=== PATIENT | male | born 1950 | race African-American/Black ===

== ENCOUNTER 2020-06-01 15:10 | Inpatient (IN) | payer OTHER ==
--- NOTE | 2020-06-01 15:24 | BHS.RME ---
Substance Use & Tx History - Substance Use History Alcohol Substance amount: one pint Frequency of use: Daily Substance route: Oral Date of Last Use: 05/31/20 (First use age 18 y) Heroin Substance amount: 8 bags Frequency of use: Daily Substance route: Inhalation (ex: sniffing or snorting) Date of Last Use: 05/31/20 (First use age 18 y) Marijuana/Hashish Substance amount: one joint Frequency of use: Once a month Substance route: Smoking Date of Last Use: 05/28/20 Nicotine Substance amount: 10 cigs Frequency of use: Daily Substance route: Smoking Date of Last Use: 06/01/20 - Last Treatment Date of last treatment: September 2018 Where was last treatment: Rehab Physical/Psych/Mental Status - Behavior General Behavior: Increased activity (restlessness, agitation) Eye Contact: Normal - Cooperativeness Cooperativeness: Cooperative - Thinking Thought Processes: Tight Thought content: Future oriented - Physical Health Problems Is patient presently having any pain?: No Does patient presently have any injuries (include location): No Does patient currently have a fever: No COWS - Scale Resting Pulse: 4= [place] > 121 Sweatin= Chills/Flushing Restless Observation: 1= Difficult to Sit Still Pupil Size: 0= Normal to Room Light Bone or Joint Aches: 1= Mild Discomfort Runny Nose/ Eye Tearin= Nasal Congestion GI Upset > 30mins: 1= Stomach Cramp Tremor Observation: 2= Slight Tremor Visible Yawning Observation: 0= None Anxiety or Irritability: 1=Feels Anxious/Irritable Goose Flesh Skin: 0=Smooth Skin COWS Score: 12 CIWA Nausea/Vomitin Muscle Tremors: 2 Anxiety: 2 Agitation: 0-Normal Activity Paroxysmal Sweats: No Perspiration Orientation: 0-Oriented Tacttile Disturbances: 0-None Auditory Disturbances: 1-Very Mild Visual Disturbances: 1-Very Mild Sensitivity Headache: 0-None Present CIWA-Ar Total Score: 9
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
[2020-06-01] MEDS ORDERED: METHADONE HCL 10 MG TABLET (FOR DETOX USE ONLY) PO ONE ×2 (17:50→18:46)
[2020-06-01] MEDS ORDERED: MENTHOL/PHENOL 1 EACH UD MM PRN (17:50)
[2020-06-01] MEDS ORDERED: BISMUTH SUBSALICYLATE 524 MG/30 ML UD PO PRN (17:50)
[2020-06-01] MEDS ORDERED: cloNIDine HCL 0.1 MG TABLET PO PRN ×2 (17:50→18:46)
[2020-06-01] MEDS ORDERED: METHOCARBAMOL 500 MG TABLET PO PRN (17:50)
[2020-06-01] MEDS ORDERED: MAGNESIUM HYDROX 2400MG/30ML ORAL SUSPENSION 30 ML CUP PO PRN (17:50)
[2020-06-01] MEDS ORDERED: IBUPROFEN 400 MG TABLET (FP) PO PRN (17:50)
[2020-06-01] MEDS ORDERED: ONDANSETRON *ODT* 4 MG TABLET SL PRN (17:50)
[2020-06-01] MEDS ORDERED: MAGNESIUM CITRATE 300 ML BOTTLE PO PRN (17:50)
[2020-06-01] MEDS ORDERED: MAG HYDROX/AL HYDROX/SIMETH 30 ML UNIT-DOSE CUP PO PRN (17:50)
[2020-06-01] MEDS ORDERED: chlordiazePOXIDE HCL 10 MG CAPSULE PO PRN (17:50)
[2020-06-01] MEDS ORDERED: ACETAMINOPHEN 325 MG TABLET (FP) PO PRN (17:50)
[2020-06-01] MEDS ORDERED: NICOTINE POLACRILEX 2 MG GUM BUC PRN (17:50)
[2020-06-01] MEDS ORDERED: hydrOXYzine PAMOATE 25 MG CAPSULE (FP) PO SCH (18:00)
[2020-06-01] MEDS ORDERED: hydrOXYzine PAMOATE 25 MG CAPSULE (FP) PO PRN (18:12)
[2020-06-01 18:34] VITALS: BMI 22.8
[2020-06-01] MEDS ORDERED: amLODIPine BESYLATE 10 MG TABLET (FP) PO ONE (18:45)
--- NOTE | 2020-06-01 18:50 | PN ---
Teaching Attending Note Name of Resident: Verenice Portillo ATTENDING PHYSICIAN STATEMENT I saw and evaluated the patient. I reviewed the resident's note and discussed the case with the resident. I agree with the resident's findings and plan as documented. SUBJECTIVE: 69 y.o. male w/ alcohol use , opiate use , requesting detox . PMHX : HTN , Pt reports extensive cardiac w/ up [facility] w/ no further recommendations. Aware of heart condition ( irregular ) , had additional; workup @ [facility] 1 WEEK AGO per pt no further recommendation. OBJECTIVE: wnwd , ambulating freely . CV : Irr Irr , no pedal edema Vital Signs - 24 hr 06/01/20 06/01/20 18:21 18:39 Temperature 97.2 F L Pulse Rate 140 H Respiratory 18 Rate Blood Pressure 145/87 O2 Sat by Pulse 99 Oximetry (%) ASSESSMENT AND PLAN: AUD - Librium detox OUD - Methadone detox f/up w/ cardiology - pt declined Aspirin prophylaxis , claims he was told NOT to take aspirin .
[2020-06-01] MEDS: NICOTINE 14 MG/24 HOURS TOPICAL PATCH TD SCH (19:56)
[2020-06-01] MEDS: MELATONIN 5 MG TABLETS PO SCH (22:25)
[2020-06-01] MEDS: THIAMINE HCL 100 MG TABLET (FP) PO SCH (22:25)
[2020-06-01] MEDS: chlordiazePOXIDE HCL 25 MG CAPSULE PO SCH (22:25)
[2020-06-02] MEDS: chlordiazePOXIDE HCL 25 MG CAPSULE PO SCH ×3 (06:13→21:43)
--- NOTE | 2020-06-02 09:12 | EKG ---
Test Reason : Blood Pressure : / mmHG Vent. Rate : 095 BPM Atrial Rate : 095 BPM P-R Int : 168 ms QRS Dur : 094 ms QT Int : 320 ms P-R-T Axes : 000 001 -79 degrees QTc Int : 402 ms SINUS RHYTHM WITH PREMATURE ATRIAL COMPLEXES WITH ABERRANT CONDUCTION ABNORMAL ECG WHEN COMPARED WITH ECG OF 09-OCT-2018 07:28, ST NOW DEPRESSED IN ANTEROLATERAL LEADS T WAVE INVERSION NOW EVIDENT IN LATERAL LEADS Confirmed by Darius Summers ([id number]) on 06/02/2020 9:12:09 AM Referred By: SHAHEEN JORGENSEN Confirmed By:Darius Summers
[2020-06-02] MEDS ORDERED: METHADONE HCL 5 MG TABLET (FOR DETOX USE ONLY) PO ONE (10:00)
[2020-06-02] MEDS ORDERED: METHADONE (DETOX) 20 MG, METHADONE (DETOX) 5 MG PO ONE (10:00)
[2020-06-02] MEDS: PRENATAL VITAMINS W/ FOLIC ACID TABLET (FP) PO SCH (10:28)
[2020-06-02] MEDS: NICOTINE 14 MG/24 HOURS TOPICAL PATCH TD SCH (10:32)
[2020-06-02] MEDS: amLODIPine BESYLATE 10 MG TABLET (FP) PO SCH (10:33)
--- NOTE | 2020-06-02 11:58 | PN ---
S CIWA - CIWA Score Nausea/Vomitin-Mild Nausea/No Vomiting Muscle Tremors: 3 Anxiety: 2 Agitation: 1-Slight > Activity Paroxysmal Sweats: No Perspiration Orientation: 0-Oriented Tacttile Disturbances: 1-Very Mild Itch/Numbness Auditory Disturbances: 0-None Visual Disturbances: 2-Mild Sensitivity Headache: 2-Mild CIWA-Ar Total Score: 12 [facility] COWS - Scale Resting Pulse: 0= [place] 80 or Below Sweatin= Chills/Flushing Restless Observation: 0= Sits Still Pupil Size: 1= Pupils >than Normal Bone or Joint Aches: 1= Mild Discomfort Runny Nose/ Eye Tearin= None GI Upset > 30mins: 2= Nausea/Diarrhea Tremor Observation of Outstretched Hands: 2= Slight Tremor Visible Yawning Observation: 0= None Anxiety or Irritability: 2=Irritable/Anxious Goose Flesh Skin: 0=Smooth Skin COWS Score: 9 [facility] Progress Note (SOAP) Subjective: 69 years old male admitted on 06/01/20 for alcohol and opiate withdrawal sx management treating with librium and methadone detox regiments feeling tired bmi 22.9 ensure 120 ml po tid with meals limited conversation with staff Objective: 06/02/20 12:01 Vital Signs - 24 hr 06/01/20 06/01/20 06/01/20 18:21 18:39 19:00 Temperature 97.2 F L 97.3 F L Pulse Rate 140 H 99 H Respiratory 18 18 Rate Blood Pressure 145/87 150/87 O2 Sat by Pulse 99 96 Oximetry (%) 06/01/20 06/02/20 06/02/20 20:48 06:38 08:48 Temperature 97.5 F L 97.5 F L 97.3 F L Pulse Rate 111 H 119 H 54 L Respiratory 18 18 16 Rate Blood Pressure 141/80 106/59 L 100/60 O2 Sat by Pulse 97 97 Oximetry (%) Laboratory Tests 06/02/20 08:00 Sodium 138 Chloride 103 Carbon Dioxide 26 BUN 10.9 Random Glucose 141 H Calcium 9.1 Total Bilirubin 0.4 AST 18 ALT 13 Total Protein 6.7 Albumin 2.9 L glucose elevation fasting pending 06/02/20 12:03 Assessment: 06/02/20 12:05 alcohol and opiate withdrawal Plan: librium and methadone regiments
[2020-06-02 12:01] LABS: ALBUMIN 2.9 g/dl (3.4-5.0); BILIRUBIN,TOTAL 0.4 mg/dL (0.2-1); BLOOD UREA NITROGEN 10.9 mg/dL (7-18); CALCIUM 9.1 mg/dL (8.5-10.1); TOT PROT 6.7 g/dl (6.4-8.2)
[2020-06-02 12:02] LABS: CREATININE 1.1 mg/dL (0.55-1.3)
[2020-06-02 12:06] LABS: POTASSIUM 2.6 mmol/L (3.5-5.1)
[2020-06-02 12:10] LABS: HEMATOCRIT 29.8 % (35.4-49); HEMOGLOBIN 9.7 GM/dL (11.7-16.9); MCH 32.7 pg (25.7-33.7); MCHC 32.5 g/dl (32.0-35.9); MEAN CELL VOLUME 100.7 fl (80-96); MEAN PLT VOLUME 11.5 fl (7.5-11.1); PLATELET COUNT 73 K/MM3 (134-434); RBC 2.96 M/mm3 (4.00-5.60); RDW 14.6 % (11.9-15.9); WHITE BLOOD COUNT 4.8 K/mm3 (4.0-10.0)
--- NOTE | 2020-06-02 12:49 | CONSULT ---
[facility] Psychiatric Consult - Data Date of interview: 06/02/20 Admission source: [facility] Identifying data: Revisit to [facility] and admission to [address] [place] [id number] for this 69 y/o AA male self-referred for detoxification treatment. ANTONIO issues : alcohol, heroin, nicotine. Patient is , father of one, homeless, unemployed and supported on SSI benefits. Substance Abuse History: Discussed with the patient. ANTONIO profile as follows : Alcohol. Substance amount: one pint. Frequency of use: Daily. Substance route: Oral. Date of Last Use: 05/31/20 (First use age 18 y). Heroin. Substance amount: 8 bags. Frequency of use: Daily. Substance route: Inhalation (ex: sniffing or snorting). Date of Last Use: 05/31/20 (First use age 18 y). Marijuana/Hashish. Substance amount: one joint. Frequency of use: Once a month. Substance route: Smoking. Date of Last Use: 05/28/20. Nicotine. Substance amount: 10 cigs. Frequency of use: Daily. Substance route: Smoking. Date of Last Use: 06/01/20. - Last Treatment. Date of last treatment: September 2018. Where was last treatment: Rehab Medical History: Patient endorses good general health. Records indicate current treatment for hypertension and umbilical hernia. Psychiatric History: Patient denies history of psychiatric hospitalizations. Mr Mae reports that he dropped out of psychiatric OPD care six months ago (managed with seroquel for mood disorder). No history of suicide attempts. Physical/Sexual Abuse/Trauma History: Patient denies. Additional Comment: Urine drug screen results: THC-Marijuana, JULIET-Cocaine, FEN- Fentanyl, MOP-Opiates. Noted. Mental Status Exam - Mental Status Exam Alert and Oriented to: Time, Place, Person Cognitive Function: Good Patient Appearance: Unkempt, Disheveled Mood: Withdrawn, Hopeful Affect: Mood Congruent, Constricted Patient Behavior: Fatigued, Appropriate, Cooperative Speech Pattern: Clear, Appropriate Voice Loudness: Normal Thought Process: Intact, Goal Oriented Thought Disorder: Not Present Hallucinations: Denies Suicidal Ideation: Denies Homicidal Ideation: Denies Insight/Judgement: Poor Sleep: Poorly, Difficulty falling asleep Appetite: Good Gait/Station: Other (not observed; in bed during interview) Psychiatric Findings - Problem List ([place] 1, 2,3) (1) Alcohol dependence Current Visit: Yes Status: Chronic Qualifiers: Substance use status: uncomplicated Qualified Code(s): F10.20 - Alcohol dependence, uncomplicated (2) Opioid dependence Current Visit: Yes Status: Chronic (3) Cannabis dependence Current Visit: Yes Status: Chronic (4) Nicotine dependence Current Visit: Yes Status: Chronic (5) Substance induced mood disorder Current Visit: Yes Status: Chronic (6) Insomnia Current Visit: Yes Status: Chronic - Initial Treatment Plan Initial Treatment Plan: Psychoeducation. Sleep hygiene. Detoxification. Resumed, at patient's request : seroquel 50 mg po hs. Side effects/benefits discussed with the patient. He agrees with this plan of care. Observation.
[2020-06-02] MEDS: POTASSIUM CHLORIDE ORAL LIQUID 20 MEQ/15 ML PO SCH ×2 (13:16→18:09)
[2020-06-02] MEDS: QUEtiapine FUMARATE 50 MG TABLET PO SCH (21:43)
[2020-06-02] MEDS: THIAMINE HCL 100 MG TABLET (FP) PO SCH (21:43)
[2020-06-02] MEDS: MELATONIN 5 MG TABLETS PO SCH (21:44)
[2020-06-03] MEDS: chlordiazePOXIDE 5 MG CAPSULE PO SCH ×3 (05:55→22:02)
[2020-06-03] MEDS ORDERED: METHADONE HCL 10 MG TABLET (FOR DETOX USE ONLY) PO ONE ×2 (10:00)
[2020-06-03] MEDS: amLODIPine BESYLATE 10 MG TABLET (FP) PO SCH (10:25)
[2020-06-03] MEDS: FERROUS SO4 325 MG TABLET (FP) PO SCH (10:25)
[2020-06-03] MEDS: PRENATAL VITAMINS W/ FOLIC ACID TABLET (FP) PO SCH (10:25)
[2020-06-03] MEDS: ACETAMINOPHEN 325 MG TABLET (FP) PO PRN (10:27)
[2020-06-03] MEDS: NICOTINE 14 MG/24 HOURS TOPICAL PATCH TD SCH (10:28)
--- NOTE | 2020-06-03 11:15 | PN ---
[facility] CIWA - CIWA Score Nausea/Vomitin-Mild Nausea/No Vomiting Muscle Tremors: 3 Anxiety: 2 Agitation: 2 Paroxysmal Sweats: 1-Minimal Palms Moist Orientation: 0-Oriented Tacttile Disturbances: 1-Very Mild Itch/Numbness Auditory Disturbances: 0-None Visual Disturbances: 0-None Headache: 1-Very Mild CIWA-Ar Total Score: 11 S COWS - Scale Resting Pulse: 1= [place] 81-100 Sweatin= No chills or Flushing Restless Observation: 1= Difficult to Sit Still Pupil Size: 1= Pupils >than Normal Bone or Joint Aches: 1= Mild Discomfort Runny Nose/ Eye Tearin= Runny Nose/Eyes GI Upset > 30mins: 1= Stomach Cramp Tremor Observation of Outstretched Hands: 2= Slight Tremor Visible Yawning Observation: 1= 1-2x During Session Anxiety or Irritability: 2=Irritable/Anxious Goose Flesh Skin: 0=Smooth Skin COWS Score: 12 [facility] Progress Note (SOAP) Subjective: alert,irritable,anxious,interrupted sleep,pain in the body and back Objective: 06/03/20 11:13 Vital Signs Temperature 97.1 F L 06/03/20 08:34 Pulse Rate 91 H 06/03/20 08:34 Respiratory Rate 20 06/03/20 08:34 Blood Pressure 99/67 06/03/20 08:34 O2 Sat by Pulse Oximetry (%) 97 06/03/20 06:13 06/03/20 11:13 repeat k and glucose pending Assessment: 06/03/20 11:13 withdrawal symptom,has potassium replacement yesterday,awaiting for repeat k to day,k dur 20 me po bid for 3 days Plan: continue dtox methadone and librium regimen
[2020-06-03] MEDS ORDERED: POTASSIUM CHLORIDE TABS 20 MEQ TABLET.ER (FP) PO SCH (11:30)
[2020-06-03 13:40] LABS: POTASSIUM 4.6 mmol/L (3.5-5.1)
--- NOTE | 2020-06-03 15:03 | PN ---
S Progress Note Note: pancytopenia probably from chronic alcoholism,k is 4.6,will give k dur 20 meq po daily for 3 days,fluid,fasting glucose 118
[2020-06-03] MEDS ORDERED: MASKS NR ONE (16:36)
[2020-06-03] MEDS: QUEtiapine FUMARATE 50 MG TABLET PO SCH (22:02)
[2020-06-03] MEDS: THIAMINE HCL 100 MG TABLET (FP) PO SCH (22:02)
[2020-06-03] MEDS: MELATONIN 5 MG TABLETS PO SCH (22:03)
--- NOTE | 2020-06-03 22:31 | PN ---
[facility] Progress Note Note: Patient fell in front of the nursing station. He reports, "my feet felt weak and buckled up"'. He denies pain or discomfort. No injury, bruises, laceration, redness and swelling noted or reported. Fall was witnessed by the nurse, Ms. Wootendarius Conley and Ms. Marah Matthews. Fall protocol # 2 initiated. Tylenol 650mg tablet oral Q6H prn. Initiate Fall precaution Vital Signs Temperature 97.1 F L 06/03/20 22:08 Pulse Rate 91 H 06/03/20 22:08 Respiratory Rate 18 06/03/20 22:08 Blood Pressure 106/59 L 06/03/20 22:08 O2 Sat by Pulse Oximetry (%) 100 06/03/20 22:08 Laboratory Last Values WBC 4.8 K/mm3 (4.0-10.0) 06/02/20 08:00 RBC 2.96 M/mm3 (4.00-5.60) L 06/02/20 08:00 Hgb 9.7 GM/dL (11.7-16.9) L 06/02/20 08:00 Hct 29.8 % (35.4-49) L 06/02/20 08:00 MCV 100.7 fl (80-96) H 06/02/20 08:00 MCH 32.7 pg (25.7-33.7) 06/02/20 08:00 MCHC 32.5 g/dl (32.0-35.9) 06/02/20 08:00 RDW 14.6 % (11.9-15.9) 06/02/20 08:00 Plt Count 73 K/MM3 (134-434) L D 06/02/20 08:00 MPV 11.5 fl (7.5-11.1) H 06/02/20 08:00 Sodium 138 mmol/L (136-145) 06/02/20 08:00 Potassium 4.6 mmol/L (3.5-5.1) 06/03/20 09:45 Chloride 103 mmol/L (98-107) 06/02/20 08:00 Carbon Dioxide 26 mmol/L (21-32) 06/02/20 08:00 Anion Gap 9 MMOL/L (8-16) 06/02/20 08:00 BUN 10.9 mg/dL (7-18) 06/02/20 08:00 Creatinine 1.1 mg/dL (0.55-1.3) 06/02/20 08:00 Est GFR (CKD-EPI)AfAm 80.08 06/02/20 08:00 Est GFR (CKD-EPI)NonAf 69.10 06/02/20 08:00 Random Glucose 141 mg/dL (74-106) H 06/02/20 08:00 Fasting Glucose 118 mg/dL (74-106) H 06/03/20 09:45 Calcium 9.1 mg/dL (8.5-10.1) 06/02/20 08:00 Total Bilirubin 0.4 mg/dL (0.2-1) 06/02/20 08:00 AST 18 U/L (15-37) 06/02/20 08:00 ALT 13 U/L (13-61) 06/02/20 08:00 Alkaline Phosphatase 50 U/L (45-117) 06/02/20 08:00 Total Protein 6.7 g/dl (6.4-8.2) 06/02/20 08:00 Albumin 2.9 g/dl (3.4-5.0) L 06/02/20 08:00 Syphilis Serology Non-reactive (NONREACTIVE) 06/02/20 08:00 COVID-19 ([facility]ABEL) Not detected (Not Detected) 06/01/20 19:00 Action: Fall protocol # 2 Maintain fall precaution Vistaril 25mg tablet oral discontinued
[2020-06-04] MEDS ORDERED: chlordiazePOXIDE HCL 10 MG CAPSULE PO PRN
[2020-06-04] MEDS ORDERED: METHADONE HCL 5 MG TABLET (FOR DETOX USE ONLY) PO ONE (06:00)
[2020-06-04] MEDS: chlordiazePOXIDE HCL 10 MG CAPSULE PO SCH ×3 (07:09→22:10)
[2020-06-04] MEDS ORDERED: METHADONE (DETOX) 10 MG, METHADONE (DETOX) 5 MG PO ONE (10:00)
[2020-06-04] MEDS: PRENATAL VITAMINS W/ FOLIC ACID TABLET (FP) PO SCH (10:23)
[2020-06-04] MEDS: NICOTINE 14 MG/24 HOURS TOPICAL PATCH TD SCH (10:23)
[2020-06-04] MEDS: amLODIPine BESYLATE 10 MG TABLET (FP) PO SCH (10:24)
[2020-06-04] MEDS: FERROUS SO4 325 MG TABLET (FP) PO SCH (10:24)
[2020-06-04] MEDS: POTASSIUM CHLORIDE TABS 20 MEQ TABLET.ER (FP) PO SCH (10:24)
[2020-06-04 11:01] LABS: INR 1.03 (0.83-1.09); PROTHROMBIN TIME (PATIENT) 12.1 SEC (9.7-13.0)
--- NOTE | 2020-06-04 11:02 | PN ---
[facility] CIWA - CIWA Score Nausea/Vomitin-No Nausea/No Vomiting Muscle Tremors: 1-None Visible, but [place] Anxiety: 1-Mildly Anxious Agitation: 1-Slight > Activity Paroxysmal Sweats: No Perspiration Orientation: 0-Oriented Tacttile Disturbances: 0-None Auditory Disturbances: 0-None Visual Disturbances: 0-None Headache: 1-Very Mild CIWA-Ar Total Score: 4 S COWS - Scale Resting Pulse: 2= [place] 101-120 Sweatin= No chills or Flushing Restless Observation: 0= Sits Still Pupil Size: 0= Normal to Room Light Bone or Joint Aches: 1= Mild Discomfort Runny Nose/ Eye Tearin= Nasal Congestion GI Upset > 30mins: 0= None Tremor Observation of Outstretched Hands: 1= Tremor [place], Not Seen Yawning Observation: 0= None Anxiety or Irritability: 2=Irritable/Anxious Goose Flesh Skin: 0=Smooth Skin COWS Score: 7 [facility] Progress Note (SOAP) Subjective: alert,irritable,anxious,on fall protocol 2 monitoring,ambulation on the unit without difficulty Objective: 06/04/20 11:00 Vital Signs Temperature 98.0 F 06/04/20 10:00 Pulse Rate 104 H 06/04/20 10:00 Respiratory Rate 18 06/04/20 10:00 Blood Pressure 111/70 06/04/20 10:00 O2 Sat by Pulse Oximetry (%) 99 06/04/20 06:00 06/04/20 11:00 k is 4.6 on 06/03/20 Laboratory Last Values WBC 4.8 K/mm3 (4.0-10.0) 06/02/20 08:00 RBC 2.96 M/mm3 (4.00-5.60) L 06/02/20 08:00 Hgb 9.7 GM/dL (11.7-16.9) L 06/02/20 08:00 Hct 29.8 % (35.4-49) L 06/02/20 08:00 MCV 100.7 fl (80-96) H 06/02/20 08:00 MCH 32.7 pg (25.7-33.7) 06/02/20 08:00 MCHC 32.5 g/dl (32.0-35.9) 06/02/20 08:00 RDW 14.6 % (11.9-15.9) 06/02/20 08:00 Plt Count 73 K/MM3 (134-434) L D 06/02/20 08:00 MPV 11.5 fl (7.5-11.1) H 06/02/20 08:00 PT with INR 12.10 SEC (9.7-13.0) 06/04/20 08:00 INR 1.03 (0.83-1.09) 06/04/20 08:00 Sodium 138 mmol/L (136-145) 06/02/20 08:00 Potassium 4.6 mmol/L (3.5-5.1) 06/03/20 09:45 Chloride 103 mmol/L (98-107) 06/02/20 08:00 Carbon Dioxide 26 mmol/L (21-32) 06/02/20 08:00 Anion Gap 9 MMOL/L (8-16) 06/02/20 08:00 BUN 10.9 mg/dL (7-18) 06/02/20 08:00 Creatinine 1.1 mg/dL (0.55-1.3) 06/02/20 08:00 Est GFR (CKD-EPI)AfAm 80.08 06/02/20 08:00 Est GFR (CKD-EPI)NonAf 69.10 06/02/20 08:00 Random Glucose 141 mg/dL (74-106) H 06/02/20 08:00 Fasting Glucose 118 mg/dL (74-106) H 06/03/20 09:45 Calcium 9.1 mg/dL (8.5-10.1) 06/02/20 08:00 Total Bilirubin 0.4 mg/dL (0.2-1) 06/02/20 08:00 AST 18 U/L (15-37) 06/02/20 08:00 ALT 13 U/L (13-61) 06/02/20 08:00 Alkaline Phosphatase 50 U/L (45-117) 06/02/20 08:00 Total Protein 6.7 g/dl (6.4-8.2) 06/02/20 08:00 Albumin 2.9 g/dl (3.4-5.0) L 06/02/20 08:00 Syphilis Serology Non-reactive (NONREACTIVE) 06/02/20 08:00 COVID-19 ([facility]) Not detected (Not Detected) 06/01/20 19:00 06/04/20 11:01 fasting glucose 118 Assessment: 06/04/20 11:01 withdrawal symptom Plan: continue detox methadone and librium regimen,discharge in am
[2020-06-04] MEDS: ACETAMINOPHEN 325 MG TABLET (FP) PO PRN (18:44)
[2020-06-04] MEDS: MELATONIN 5 MG TABLETS PO SCH (22:10)
[2020-06-04] MEDS: THIAMINE HCL 100 MG TABLET (FP) PO SCH (22:10)
[2020-06-04] MEDS: QUEtiapine FUMARATE 50 MG TABLET PO SCH (22:10)
[2020-06-05] MEDS ORDERED: chlordiazePOXIDE HCL 10 MG CAPSULE PO ONE (05:00)
[2020-06-05 06:38] VITALS: TEMP 97.1
[2020-06-05 08:58] VITALS: BP 119/81; PULSE 84
[2020-06-05] MEDS: amLODIPine BESYLATE 10 MG TABLET (FP) PO SCH (09:22)
[2020-06-05] MEDS: POTASSIUM CHLORIDE TABS 20 MEQ TABLET.ER (FP) PO SCH (09:22)
[2020-06-05] MEDS: FERROUS SO4 325 MG TABLET (FP) PO SCH (09:22)
[2020-06-05] MEDS ORDERED: METHADONE HCL 10 MG TABLET (FOR DETOX USE ONLY) PO ONE (10:00)
--- NOTE | 2020-06-05 14:33 | DS ---
[facility] Detox Discharge Summary Admission Date: 06/01/20 Discharge Date: 06/05/20 - History Present History: Alcohol Dependence, Cannabis Dependence, Opioid Dependence Additional Comments: Pt is medically cleared and discharged today. Pt completed the detox protocol. Pt is encouraged to follow-up with an outpatient CD program and also to follow- up with his PMD which he verbalized understanding. Pt is alert and oriented x3 and in no acute respiratory distress, Full ROM, and ambulatory. Pertinent Past History: h/o HTN, alcohol, cannabis, and heroin use disorder. - Physical Exam Results Vital Signs: Vital Signs Temperature 97.1 F L 06/05/20 08:30 Pulse Rate 84 06/05/20 08:30 Respiratory Rate 16 06/05/20 08:30 Blood Pressure 119/81 06/05/20 08:30 O2 Sat by Pulse Oximetry (%) 98 06/05/20 08:30 Vital Signs 06/05/20 06/05/20 06:38 08:30 Temperature 97.1 F L 97.1 F L Pulse Rate 71 84 Respiratory 18 16 Rate Blood Pressure 145/79 119/81 O2 Sat by Pulse 98 98 Oximetry (%) Vital Signs 06/05/20 06/05/20 06:38 08:30 Temperature 97.1 F L 97.1 F L Pulse Rate 71 84 Respiratory 18 16 Rate Blood Pressure 145/79 119/81 O2 Sat by Pulse 98 98 Oximetry (%) Laboratory Last Values WBC 4.8 K/mm3 (4.0-10.0) 06/02/20 08:00 RBC 2.96 M/mm3 (4.00-5.60) L 06/02/20 08:00 Hgb 9.7 GM/dL (11.7-16.9) L 06/02/20 08:00 Hct 29.8 % (35.4-49) L 06/02/20 08:00 MCV 100.7 fl (80-96) H 06/02/20 08:00 MCH 32.7 pg (25.7-33.7) 06/02/20 08:00 MCHC 32.5 g/dl (32.0-35.9) 06/02/20 08:00 RDW 14.6 % (11.9-15.9) 06/02/20 08:00 Plt Count 73 K/MM3 (134-434) L D 06/02/20 08:00 MPV 11.5 fl (7.5-11.1) H 06/02/20 08:00 PT with INR 12.10 SEC (9.7-13.0) 06/04/20 08:00 INR 1.03 (0.83-1.09) 06/04/20 08:00 Sodium 138 mmol/L (136-145) 06/02/20 08:00 Potassium 4.6 mmol/L (3.5-5.1) 06/03/20 09:45 Chloride 103 mmol/L (98-107) 06/02/20 08:00 Carbon Dioxide 26 mmol/L (21-32) 06/02/20 08:00 Anion Gap 9 MMOL/L (8-16) 06/02/20 08:00 BUN 10.9 mg/dL (7-18) 06/02/20 08:00 Creatinine 1.1 mg/dL (0.55-1.3) 06/02/20 08:00 Est GFR (CKD-EPI)AfAm 80.08 06/02/20 08:00 Est GFR (CKD-EPI)NonAf 69.10 06/02/20 08:00 Random Glucose 141 mg/dL (74-106) H 06/02/20 08:00 Fasting Glucose 118 mg/dL (74-106) H 06/03/20 09:45 Calcium 9.1 mg/dL (8.5-10.1) 06/02/20 08:00 Total Bilirubin 0.4 mg/dL (0.2-1) 06/02/20 08:00 AST 18 U/L (15-37) 06/02/20 08:00 ALT 13 U/L (13-61) 06/02/20 08:00 Alkaline Phosphatase 50 U/L (45-117) 06/02/20 08:00 Total Protein 6.7 g/dl (6.4-8.2) 06/02/20 08:00 Albumin 2.9 g/dl (3.4-5.0) L 06/02/20 08:00 Syphilis Serology Non-reactive (NONREACTIVE) 06/02/20 08:00 COVID-19 ([facility]) Not detected (Not Detected) 06/01/20 19:00 Labs noted. Pertinent Admission Physical Exam Findings: withdrawal symptoms. - Treatment Hospital Course: Detox Protocol Followed, Detoxed Safely, Responded well, Discharged Condition Good - Medication Discharge Medications: Ambulatory Orders Amlodipine Besylate [Norvasc -] 10 mg PO DAILY 10/09/18 Quetiapine Fumarate [Seroquel -] 25 mg PO BID 10/09/18 Amlodipine Besylate [Norvasc -] 10 mg PO DAILY #30 tablet 10/23/18 Quetiapine Fumarate [Seroquel -] 75 mg PO HS #90 tablet 10/23/18 - Diagnosis (1) Heroin dependence Status: Acute (2) Alcohol dependence Status: Chronic Qualifiers: Substance use status: uncomplicated Qualified Code(s): F10.20 - Alcohol dependence, uncomplicated (3) Cannabis dependence Status: Chronic (4) Hypertension Status: Chronic Qualifiers: Hypertension type: essential hypertension Qualified Code(s): I10 - Essential (primary) hypertension (5) Nicotine dependence Status: Chronic - AMA Did Patient Leave Against Medical Advice: No
[2020-06-06] MEDS ORDERED: METHADONE HCL 5 MG TABLET (FOR DETOX USE ONLY) PO ONE (06:00)
== END 2020-06-05 09:40 | disposition home or self-care (01) | DRG 897 ==
LOC: YASAS 15:10 → Y3N 18:31
PROVIDERS: ADMIT Allergy & Immunology; ATTEND Allergy & Immunology
PROC: HZ2ZZZZ Detoxification Services for Substance Abuse Treatment (ICD-10-PCS; principal; 2020-06-01)
DX: F11.23 Opioid dependence with withdrawal (principal); D61.818 Other pancytopenia; F12.20 Cannabis dependence, uncomplicated; F17.210 Nicotine dependence, cigarettes, uncomplicated; F19.24 Other psychoactive substance dependence with psychoactive substance-induced mood disorder; F41.9 Anxiety disorder, unspecified; I10 Essential (primary) hypertension; G47.00 Insomnia, unspecified; E87.5 Hyperkalemia; R00.0 Tachycardia, unspecified; W18.39XA Other fall on same level, initial encounter; Y93.89 Activity, other specified; Y92.238 Other place in hospital as the place of occurrence of the external cause; Z91.5 Personal history of self-harm
CPT/HCPCS: 36415; 71045-TC-FY; 80053; 82947; 84132; 85027; 85610; 86780; 93005; 93010; U0003